=== PATIENT | male | born 1970 | race Caucasian/White ===

== ENCOUNTER → 2019-06-18 09:58 | Outpatient (CLI) | payer MEDICARE, BC | END | disposition home or self-care (01) | LOC: D.CT 09:58 | PROVIDERS: ATTEND Family Medicine | DX: R22.1 Localized swelling, mass and lump, neck (principal) ==

== ENCOUNTER → 2019-06-30 08:34 | Outpatient (CLI) | payer BC | END | disposition home or self-care (01) | LOC: D.MRI 08:34 | PROVIDERS: ATTEND Family Medicine | DX: G51.9 Disorder of facial nerve, unspecified (principal) ==

== ENCOUNTER → 2020-09-20 07:26 | Outpatient (CLI) | payer MEDICARE ==
[2020-09-14 12:56] VITALS: BMI 27.3
[~2020-09-20 07:26] MED LIST: LISINOPRIL40 MG PO
== END | disposition home or self-care (01) ==
LOC: D.US 09-17 08:00
PROVIDERS: ATTEND Family Medicine
DX: R10.10 Upper abdominal pain, unspecified (principal); Z85.9 Personal history of malignant neoplasm, unspecified

== ENCOUNTER → 2020-10-01 07:41 | Outpatient (CLI) | payer BC ==
[2020-09-14 12:56] VITALS: BMI 27.3
== END | disposition home or self-care (01) ==
LOC: D.NM 07:41
PROVIDERS: ATTEND Family Medicine
DX: R10.10 Upper abdominal pain, unspecified (principal); K76.0 Fatty (change of) liver, not elsewhere classified